=== PATIENT | male | born 1980 | race Caucasian/White ===

== ENCOUNTER 2023-10-31 19:42 | Emergency (ER) | payer OTHER ==
[2023-10-31] MEDS: Diphtheria,Pertussis(Acell),Tetanus Vaccine 0.5 ML Syringe IM ONE (22:39)
[2023-10-31] MEDS: Bacitracin Oint 1 GM U/D Packet TOP ONE (22:39)
== END 2023-10-31 22:50 | disposition home or self-care (01) ==
LOC: JP.ED 19:42
DX: S61.412A Laceration without foreign body of left hand, initial encounter (principal); F17.210 Nicotine dependence, cigarettes, uncomplicated; Z88.0 Allergy status to penicillin; Z23 Encounter for immunization; W26.0XXA Contact with knife, initial encounter
CPT/HCPCS: 12002; 90471; 90715; 99282-25